=== PATIENT | female | born 1980 | race Caucasian/White ===

== ENCOUNTER 2024-06-27 18:43 | Emergency (ER) | payer SELFPAY ==
[~2024-06-27] VITALS: Ht 160 cm; Wt 73.0 kg
[2024-06-27 18:46] VITALS: TEMP 98.4; O2SAT 100
[2024-06-27] MEDS ORDERED: TETANUS AND DIPHTHERIA TOX/PF 0.5ML SYR (ADULT) IM ONE (19:00)
[2024-06-27] MEDS ORDERED: IBUP-2029 MT (20:57)
[2024-06-27] MEDS ORDERED: BO1 TP (20:57)
[2024-06-27] MEDS: TETANUS, DIPHTHERIA, PERTUSSIS VAC/PF 0.5ML (>10YR OLD) IM ONE (21:19)
[2024-06-27 21:25] VITALS: BP 142/78; PULSE 92; RESP 18; O2SAT 100
== END 2024-06-27 21:26 | disposition home or self-care (01) ==
LOC: ER 18:43 → EDSEX 18:43 → ER 21:26
DX: S00.81XA Abrasion of other part of head, initial encounter (principal); E11.9 Type 2 diabetes mellitus without complications; I10 Essential (primary) hypertension; G31.89 Other specified degenerative diseases of nervous system; Z88.0 Allergy status to penicillin; Y08.89XA Assault by other specified means, initial encounter; Y93.89 Activity, other specified; Y92.89 Other specified places as the place of occurrence of the external cause; Y99.8 Other external cause status
CPT/HCPCS: 70486; 71045; 90471; 90715; 99285